=== PATIENT | female | born 1980 | race Caucasian/White ===

== ENCOUNTER → 2016-11-25 | Outpatient (CLI) | payer BC ==
[2016-11-25 10:31] LABS: HEMATOCRIT 40.5 % (37.0-47.0); HEMOGLOBIN 13.2 g/dL (12.0-16.0); MEAN CORPUSCULAR HEMOGLOBIN 26.9 PG (27-31); MEAN CORPUSCULAR HGB CONC 32.6 g/dL (33-37); MEAN PLATELET VOLUME 12.6 FL (7.4-12.2); RDW COEFFICIENT OF VARIATION 14.9 % (11.5-14.5); RED BLOOD COUNT 4.9 10^6/uL (4.20-5.40); WHITE BLOOD COUNT 9.2 10^3/uL (4.8-10.8)
[2016-11-25 10:56] LABS: ASPARTATE AMINO TRANSFERASE 19 IU/L (8-39); BILIRUBIN,TOTAL 0.5 mg/dL (0.3-1.2); BLOOD UREA NITROGEN 13 mg/dL (7-22); BUN/CREATININE RATIO 18.57 (6-20); CHLORIDE 101 meq/L (98-112); CREATININE 0.7 mg/dL (0.50-1.20); EST GLOMERULAR FILTRATION > 60 (>60 ml/min/1.73m(2)); GLUCOSE 83 mg/dL (78-110); HDL CHOLESTEROL 40 mg/dL (40-150); POTASSIUM 4.5 meq/L (3.8-5.2); SODIUM 139 meq/L (135-145); TOTAL PROTEIN 7.1 g/dL (6.1-8.0); TRIGLYCERIDES 92 mg/dL (44-200)
[2016-11-25 11:24] LABS: FREE T4 (FREE THYROXINE) 1.21 ng/dL (0.93-1.71)
== END ==
LOC: MOB LAB 08:01
PROVIDERS: ATTEND Family Medicine
DX: Z00.00 Encounter for general adult medical examination without abnormal findings (principal)
CPT/HCPCS: 36415; 80053; 80061; 84439; 84443; 85027

== ENCOUNTER → 2016-11-29 | Outpatient (CLI) | payer BC | LOC: MOB LAB 12:53 | PROVIDERS: ATTEND Family Medicine | DX: R53.83 Other fatigue (principal) | CPT/HCPCS: 36415; 82728; 83540; 83550 ==

== ENCOUNTER → 2016-12-23 | Outpatient (CLI) | payer BC | LOC: MOB LAB 10:59 | PROVIDERS: ATTEND Family Medicine | DX: E03.9 Hypothyroidism, unspecified (principal) | CPT/HCPCS: 36415; 84443 ==

== ENCOUNTER 2019-03-22 06:19 | Observation (INO) ==
[~2019-03-22 06:19] MED LIST: CefOXitin Inj 2 GM in Sodium Chloride 0.9% 100 ML IV ONE; LIDOCAINE W/ SODIUM BICARB 0.5 ML SYR ONE; LIDOCAINE W/ SODIUM BICARB 0.5 ML SYR SUBD PRN; Lactated Ringers 1,000 ML PRIMARY IV ONE; Nasal Sanitizer POPSWAB ampule 3 AMP (Nozin) PREOP DOSE ENOS SCH; Sodium Chloride 0.9% 100 ML IV ONE
[2019-03-22 06:37] LABS: BILIRUBIN,URINE NEGATIVE (NEG); CLARITY,URINE CLEAR (CLEAR); COLOR,URINE YELLOW (Y); GLUCOSE, URINE (UA) NEGATIVE (NEG); OCCULT BLOOD,URINE MODERATE (NEG); PROTEIN,URINE NEGATIVE (NEG); UROBILINOGEN,URINE 0.2 EU/dL (0.2)
[2019-03-22 06:39] LABS: URINE SPECIFIC GRAVITY - MAN 1.015
[2019-03-22 06:45] LABS: RBC,URINE 0 /hpf; SQUAMOUS EPITHELIAL CELL,UR MODERATE; URINE SAMPLE TYPE CLEAN CATCH URINE
[2019-03-22] MEDS: Lactated Ringers 1,000 ML PRIMARY IV SCH ×7 (07:04→23:11)
[2019-03-22 07:06] LABS: Hematocrit [HCT] 44.8 % (37.0-47.0); Hemoglobin [HGB] 14.5 g/dL (12.0-16.0)
[2019-03-22] MEDS ORDERED: LIDOCAINE HCL 2 % 10 ML JELLY URO-JECT TOPICAL ONE ×3 (07:15→09:40)
[2019-03-22] MEDS ORDERED: BUPIVACAINE 0.5% W/ EPI - 10 ML VIAL ONE (07:15)
[2019-03-22] MEDS ORDERED: ESTROGENS,CONJUGATED 30 GM CREAM VAGINAL ONE (07:16)
[2019-03-22] MEDS ORDERED: DEXAMETHASONE PF 10 MG/1 ML VIAL ONE (07:17)
[2019-03-22] MEDS ORDERED: fentaNYL Inj 100 MCG/2 ML VIAL ONE ×2 (07:17→08:37)
[2019-03-22] MEDS ORDERED: LIDOCAINE 2% 20 MG/ML - 20 ML VIAL ONE (07:17)
[2019-03-22] MEDS ORDERED: KETOROLAC 30 MG/1 ML VIAL ONE (07:17)
[2019-03-22] MEDS ORDERED: PROPOFOL 10 MG/1 ML (200 MG/20 ML) VIAL IV ONE (07:17)
[2019-03-22] MEDS ORDERED: ROCURONIUM 10 MG/1 ML - 5 ML VIAL IVP ONE (07:24)
[2019-03-22] MEDS ORDERED: LIDOCAINE HCL 2 % 10 ML JELLY URO-JECT TOPICAL PRN (08:37)
[2019-03-22] MEDS ORDERED: SUGAMMADEX SODIUM 200 MG/2 ML VIAL IV ONE (09:43)
[2019-03-22] MEDS ORDERED: Ondansetron ODT Tab 8 MG TAB PO PRN (09:47)
[2019-03-22] MEDS ORDERED: IBUPROFEN 800 MG TABLET PO PRN (09:47)
--- NOTE | 2019-03-22 09:55 | OB.OP.NOTE ---
Operative Report Surgeon: Dr. Paul Sanitary Inspector: Hector Nguyen MD Anesthesia Type: General Anesthesia Provider: Wu Moran MD Surgery Date: 03/22/19 Preoperative Diagnosis: MMR/Dysmenorrhea/Fibroids Postoperative Diagnosis: Same Procedure: Vaginal Hysterectomy/Cystoscopy Estimated Blood Loss (mL): 200 Fluids: 1000 ml Complications: None identified Findings at Surgery: Diffusely enlarged uterus. At cysto, the bladder was intact and both ureters were seen to eject urine indicating ureteral patency and function. Indications for the Procedure: MMR/Dysmenorrhea/Fibroids Description of Procedure: See dictated operative report. Plan: Overnight observation with discharge in the AM if stable.
[2019-03-22] MEDS ORDERED: LIDOCAINE W/ SODIUM BICARB 0.5 ML SYR SUBD PRN (09:58)
[2019-03-22] MEDS ORDERED: Meperidine Inj 50 MG/ML CARPUJECT IVP PRN (09:58)
[2019-03-22] MEDS ORDERED: MORPHINE SULFATE 2 MG/1 ML IVP PRN (09:58)
[2019-03-22] MEDS ORDERED: Metoclopramide Inj 10 MG/2 ML VIAL IVP PRN (09:58)
[2019-03-22] MEDS ORDERED: fentaNYL Inj 100 MCG/2 ML VIAL IVP PRN (09:58)
[2019-03-22] MEDS ORDERED: Prochlorperazine Edisylate Inj 10mg/2ml vial IVP PRN (09:58)
[2019-03-22] MEDS ORDERED: PROMETHAZINE 25 MG/1 ML VIAL IM PRN (09:58)
--- NOTE | 2019-03-22 10:00 | CRNA.PROGR ---
Anesthesia Time - Procedure/Recovery Time Start Date: 03/22/19 End Date: 03/22/19 Anesthesia : Time In: 07:50 Anesthesia : Time Out: 09:51 Anesthesia : Total Time: 121 - Total Anesthesia Time Total Anesthesia Time (minutes): 121 - Other Weight: 151.953 kg Height: 5 ft 6 in Body Mass Index (BMI): 54.1 Physical Status: P3 Anesthesia Type: General Anesthesia : ET
--- NOTE | 2019-03-22 10:01 | CRNA.PROGR ---
Anesthesia Recovery Phase I - Post Anesthesia Evaluation Patient's Condition on Arrival in Phase I: Stable Pain Level: 1
[2019-03-22] MEDS: HYDROmorphone 2 MG/1 ML IVP PRN ×4 (10:08→10:42)
[2019-03-22] MEDS: oxyCODONE/APAP 7.5/325 Tab 1 TAB TAB PO PRN ×3 (12:31→21:08)
[2019-03-22] MEDS: KETOROLAC 15 MG/1 ML VIAL IVP SCH ×3 (15:47→21:59)
[2019-03-22] MEDS ORDERED: ZOLPIDEM 10 MG TABLET PO PRN (19:12)
[2019-03-22 21:10] LABS: Hematocrit [HCT] 42.7 % (37.0-47.0); Hemoglobin [HGB] 13.6 g/dL (12.0-16.0)
[2019-03-22] MEDS: DOCUSATE 100 MG CAPSULE PO SCH (21:10)
[2019-03-23 01:14] VITALS: RESP 20
[2019-03-23] MEDS: KETOROLAC 15 MG/1 ML VIAL IVP SCH ×2 (03:46→11:03)
[2019-03-23] MEDS: Lactated Ringers 1,000 ML PRIMARY IV SCH ×2 (05:00)
[2019-03-23 07:53] VITALS: BP 100/61; TEMP 97.4; O2SAT 95
[2019-03-23] MEDS: DOCUSATE 100 MG CAPSULE PO SCH (08:01)
[2019-03-23] MEDS: oxyCODONE/APAP 7.5/325 Tab 1 TAB TAB PO PRN (08:01)
--- NOTE | 2019-03-23 08:58 | DCSUMMARY ---
Hospitalization Summary Admit Date: 03/22/2019 Discharge Date: 03/23/19 Primary Diagnosis:: MMR/Dysmenorrhea/Fibroids Hospital Course: The patient underwent an uncomplicated vaginal hysterectomy. She was observed overnight. She remained stable overnight, with no signs of bleeding. She was discharged to home on POD 1 in good condition. The patient was instructed to ambulate as much as possible to avoid DVT/PE. We will not use Lovenox as I am concerned about the risk of bleeding and the difficulty addressing any bleeding due to the patient's BMI. F/u 6 weeks and prn. Exam - Vitals Vital Signs: Vital Signs Temperature 97.4 F Temperature Source Temporal Artery Scan Pulse Rate [Pulse Oximeter] 92 Pulse Rate 100 Respiratory Rate 20 Blood Pressure [Left Radial 100/61 Artery] Blood Pressure [Right Arm] 128/74 Blood Pressure 135/86 Pulse Ox 95 Oxygen Flow Rate 2 Oxygen Delivery Method Nasal Cannula Height 5 ft 6 in Weight 335 lb
--- NOTE | 2019-03-23 09:21 | CRNA.PROGR ---
Anesthesia Note - Progress Notes Anesthesia Progress Note: Inpatient overnight observation. Cheerful and awake this am. States her pain is controlled. No nausea. No delong catheter. Plans on going home today. Amnestic of events after moving over to operating table. Laboratory Results 03/22/19 21:08 Hgb 13.6 Hct 42.7 Vital Signs - Last Taken Temperature 97.4 F 03/23/19 07:49 Pulse Rate 92 03/23/19 07:49 Respiratory Rate 20 03/23/19 07:49 Blood Pressure 100/61 03/23/19 07:49 Pulse Ox 95 03/23/19 07:49 No apparent anesthetic difficulties.
== END 2019-03-23 11:13 | disposition home or self-care (01) ==
LOC: MED/SURG 06:19 → OR 06:19
PROVIDERS: ADMIT Obstetrics & Gynecology; ATTEND Obstetrics & Gynecology